=== PATIENT | female | born 1950 | race Caucasian/White ===

== ENCOUNTER 2018-01-15 12:53 | Emergency (ER) | payer MEDICARE ==
[2018-01-15 14:12] LABS: BILIRUBIN,URINE NEGATIVE (NEG); CLARITY,URINE CLEAR; COLOR,URINE YELLOW; GLUCOSE,URINE NEGATIVE (NEG); NITRITE,URINE NEGATIVE (NEG); PROTEIN,URINE NEGATIVE (NEG-TRACE); UROBILINOGEN,URINE 0.2 mg/dL (0.2 mg/dL)
[2018-01-15 14:18] LABS: ANION GAP 7 (6-14); BLOOD UREA NITROGEN 20 mg/dL (7-20); CALCIUM 10.8 mg/dL (8.5-10.1); CARBON DIOXIDE 30 mmol/L (21-32); CHLORIDE 104 mmol/L (98-107); CREATININE 0.8 mg/dL (0.6-1.0); GFR 71.1; GLUCOSE 126 mg/dL (70-99); POTASSIUM 3.5 mmol/L (3.5-5.1); SODIUM 141 mmol/L (136-145)
[2018-01-15 14:20] LABS: BACTERIA,URINE 0 /HPF (0-FEW); SQUAMOUS EPITHELIAL CELL,UR FEW /LPF; WBC,URINE 0 /HPF (0-4)
[2018-01-15] MEDS: LABETALOL 20 MG/4 ML DISP.SYRIN. IVP (14:31)
== END 2018-01-15 15:33 | disposition home or self-care (01) ==
LOC: ER 12:53
DX: I16.0 Hypertensive urgency (principal)
CPT/HCPCS: 36415; 71045; 80048; 81001; 93005; 96374; 99285-25; J3490

== ENCOUNTER 2018-01-20 04:32 | Inpatient (IN) | payer MEDICARE ==
[2018-01-20] MEDS: IV NORMAL SALINE 1000ML BAG 1,000 ML IV (05:00)
[2018-01-20] MEDS ORDERED: CONTRAST GIVEN MC (05:15)
[2018-01-20 05:17] LABS: ADD MAN DIFF? NO
[2018-01-20 05:20] LABS: BASO # 0.1 x10^3/uL (0.0-0.2); BASO % 1 % (0-3); EOS # 0.1 x10^3/uL (0.0-0.7); EOS % 1 % (0-3); HEMATOCRIT 41.7 % (36.0-47.0); HEMOGLOBIN 14.1 g/dL (12.0-15.5); LYMPH # 4.3 x10^3/uL (1.0-4.8); LYMPH % 38 % (24-48); MEAN CORPUSCULAR HEMOGLOBIN 30 pg (25-35); MEAN CORPUSCULAR HGB CONC 34 g/dL (31-37); MEAN CORPUSCULAR VOLUME 89 fL (79-100); MONO # 0.8 x10^3/uL (0.0-1.1); MONO % 7 % (0-9); NEUT # 5.9 x10^3uL (1.8-7.7); NEUT % 53 % (31-73); PLATELET COUNT 310 x10^3/uL (140-400); RED BLOOD COUNT 4.71 x10^6/uL (3.50-5.40); RED CELL DISTRIBUTION WIDTH 14.9 % (11.5-14.5); WHITE BLOOD COUNT 11.2 x10^3/uL (4.0-11.0)
[2018-01-20] MEDS: AMIODARONE 150 MG in IV DEXTROSE 5% 100 ML IV (05:28)
[2018-01-20 05:30] LABS: ANION GAP 3 (6-14); BLOOD UREA NITROGEN 21 mg/dL (7-20); BUN/CREATININE RATIO 26 (6-20); CARBON DIOXIDE 30 mmol/L (21-32); CHLORIDE 109 mmol/L (98-107); CREATININE 0.8 mg/dL (0.6-1.0); GFR 71.1; GLUCOSE 108 mg/dL (70-99); POTASSIUM 3.2 mmol/L (3.5-5.1); SODIUM 142 mmol/L (136-145)
[2018-01-20 05:36] LABS: ALBUMIN 3.1 g/dL (3.4-5.0); ALBUMIN/GLOBULIN RATIO 0.9 (1.0-1.7); ALK PHOS 87 U/L (46-116); ALT (SGPT) 19 U/L (14-59); AST (SGOT) 10 U/L (15-37); TOTAL BILIRUBIN 0.4 mg/dL (0.2-1.0); TOTAL PROTEIN 6.4 g/dL (6.4-8.2)
[2018-01-20 05:38] LABS: TROPONINI < 0.017 ng/mL (0.000-0.055)
[2018-01-20] MEDS: AMIODARONE 900 MG in IV DEXTROSE 5% 500 ML IV (05:44)
[2018-01-20] MEDS: IOHEXOL 300 MG/ML 100ML VIAL. IV (06:00)
[2018-01-20] MEDS ORDERED: ONDANSETRON PF 4 MG/2 ML VIAL. IV (06:30)
[2018-01-20] MEDS ORDERED: NITROGLYCERIN SUBLINGUAL 0.4 MG BOTTLE OF 25. SL (06:30)
[2018-01-20] MEDS ORDERED: MORPHINE SULFATE 4 MG/ML DISP.SYRIN. IV (06:30)
[2018-01-20 08:00] LABS: MAGNESIUM 1.9 mg/dL (1.8-2.4)
[2018-01-20 09:55] LABS: TROPONINI < 0.017 ng/mL (0.000-0.055)
[2018-01-20] MEDS: IPRATRPIUM/ALBUTEROL 0.5/2.5MG 3 ML NEBU. NEB ×3 (11:26→20:37)
[2018-01-20] MEDS: amLODIPine BESYLATE 5 MG TABLET PO (12:00)
[2018-01-20] MEDS: PANTOPRAZOLE 40 MG TABLET.DR. PO (12:00)
[2018-01-20] MEDS: POTASSIUM CHLORIDE 20 MEQ TABLET.ER. PO (12:00)
[2018-01-20] MEDS ORDERED: IODIXANOL 320 MG/ML 100 ML VIAL. (12:41)
[2018-01-20] MEDS ORDERED: LIDOCAINE 2% 20 ML VIAL. (12:41)
[2018-01-20 12:46] LABS: CHOLESTEROL 184 mg/dL (0-200); CHOLESTEROL/HDL RATIO 2.5; HDLC 75 mg/dL (40-60); LDLC 82 mg/dL (0-100); NON-HDL CHOLESTEROL 109 mg/dL (0-129); TRIGLYCERIDES 134 mg/dL (0-150); VLDLC 27 mg/dL (0-40)
[2018-01-20 12:52] LABS: TROPONINI < 0.017 ng/mL (0.000-0.055)
[2018-01-20] MEDS ORDERED: fentaNYL PF VIAL 100 MCG/2 ML VIAL (15:25)
[2018-01-20] MEDS ORDERED: MIDAZOLAM HCL/PF 2 MG/2 ML VIAL. (15:25)
[2018-01-20] MEDS: ENOXAPARIN 40 MG/0.4 ML SYRINGE. SQ (16:00)
[2018-01-20] MEDS: IODIXANOL 320 MG/ML 100 ML VIAL. IART (16:05)
[2018-01-20] MEDS: LIDOCAINE 2% 20 ML VIAL. IJ (16:06)
[2018-01-20] MEDS: fentaNYL PF VIAL 100 MCG/2 ML VIAL IV (16:07)
[2018-01-20] MEDS: MIDAZOLAM HCL/PF 2 MG/2 ML VIAL. IV (16:07)
[2018-01-20] MEDS: DOXYCYCLINE HYCLATE 100 MG TABLET PO ×2 (16:58→21:08)
[2018-01-20] MEDS: LACTOBACILLUS RHAMNOSUS GG 1 CAPSULE. PO ×2 (16:58→21:08)
[2018-01-20] MEDS: IV 1/2 NORMAL SALINE 1,000 ML IV (17:09)
[2018-01-20] MEDS: ATORVASTATIN CALCIUM 20 MG TABLET PO (21:08)
[2018-01-20] MEDS: ACETAMINOPHEN 325 MG TABLET. PO (21:09)
[2018-01-21] MEDS: ACETAMINOPHEN 325 MG TABLET. PO (03:27)
[2018-01-21 05:09] LABS: ADD MAN DIFF? NO
[2018-01-21] MEDS: amLODIPine BESYLATE 5 MG TABLET PO (05:12)
[2018-01-21 05:34] LABS: BASO % 0 % (0-3); EOS # 0.3 x10^3/uL (0.0-0.7); EOS % 3 % (0-3); HEMATOCRIT 42.4 % (36.0-47.0); HEMOGLOBIN 13.7 g/dL (12.0-15.5); LYMPH # 3.8 x10^3/uL (1.0-4.8); LYMPH % 31 % (24-48); MEAN CORPUSCULAR HEMOGLOBIN 29 pg (25-35); MEAN CORPUSCULAR HGB CONC 32 g/dL (31-37); MEAN CORPUSCULAR VOLUME 89 fL (79-100); MONO # 0.8 x10^3/uL (0.0-1.1); MONO % 7 % (0-9); NEUT # 7.2 x10^3uL (1.8-7.7); NEUT % 59 % (31-73); PLATELET COUNT 280 x10^3/uL (140-400); RED BLOOD COUNT 4.77 x10^6/uL (3.50-5.40); WHITE BLOOD COUNT 12.1 x10^3/uL (4.0-11.0)
[2018-01-21 06:11] LABS: ALBUMIN 3.1 g/dL (3.4-5.0); ALBUMIN/GLOBULIN RATIO 0.9 (1.0-1.7); ALK PHOS 79 U/L (46-116); ALT (SGPT) 20 U/L (14-59); ANION GAP 7 (6-14); AST (SGOT) 13 U/L (15-37); BLOOD UREA NITROGEN 14 mg/dL (7-20); BUN/CREATININE RATIO 20 (6-20); CALCIUM 9.8 mg/dL (8.5-10.1); CARBON DIOXIDE 29 mmol/L (21-32); CHLORIDE 104 mmol/L (98-107); CREATININE 0.7 mg/dL (0.6-1.0); GLUCOSE 103 mg/dL (70-99); POTASSIUM 3.7 mmol/L (3.5-5.1); SODIUM 140 mmol/L (136-145); TOTAL BILIRUBIN 0.5 mg/dL (0.2-1.0); TOTAL PROTEIN 6.4 g/dL (6.4-8.2)
[2018-01-21] MEDS: IPRATRPIUM/ALBUTEROL 0.5/2.5MG 3 ML NEBU. NEB ×4 (08:03→20:07)
[2018-01-21] MEDS: PANTOPRAZOLE 40 MG TABLET.DR. PO (08:30)
[2018-01-21] MEDS: LACTOBACILLUS RHAMNOSUS GG 1 CAPSULE. PO ×2 (08:31→21:00)
[2018-01-21] MEDS: AMIODARONE HCL 200 MG TABLET. PO (08:31)
[2018-01-21] MEDS: DOXYCYCLINE HYCLATE 100 MG TABLET PO ×2 (08:31→21:00)
[2018-01-21] MEDS: IV 1/2 NORMAL SALINE 1,000 ML IV (08:49)
[2018-01-21] MEDS: hydroCHLOROthiazide 25 MG TABLET PO (17:27)
[2018-01-21] MEDS: LISINOPRIL 20 MG TABLET PO (17:28)
[2018-01-21] MEDS: diazePAM 5 MG TABLET PO (18:18)
[2018-01-21] MEDS: ENOXAPARIN 40 MG/0.4 ML SYRINGE. SQ (18:22)
[2018-01-21] MEDS: ATORVASTATIN CALCIUM 20 MG TABLET PO (21:00)
[2018-01-21] MEDS ORDERED: ATORVASTATIN CALCIUM 20 MG TABLET PO (21:00)
[2018-01-22] MEDS: IV 1/2 NORMAL SALINE 1,000 ML IV (01:29)
[2018-01-22] MEDS: PANTOPRAZOLE 40 MG TABLET.DR. PO (08:07)
[2018-01-22] MEDS: hydroCHLOROthiazide 25 MG TABLET PO (08:07)
[2018-01-22] MEDS: amLODIPine BESYLATE 5 MG TABLET PO (08:08)
[2018-01-22] MEDS: LACTOBACILLUS RHAMNOSUS GG 1 CAPSULE. PO (08:08)
[2018-01-22] MEDS: LISINOPRIL 20 MG TABLET PO (08:08)
[2018-01-22] MEDS: DOXYCYCLINE HYCLATE 100 MG TABLET PO (08:09)
[2018-01-22] MEDS: AMIODARONE HCL 200 MG TABLET. PO (08:09)
[2018-01-22] MEDS: IPRATRPIUM/ALBUTEROL 0.5/2.5MG 3 ML NEBU. NEB ×2 (10:57→12:00)
== END 2018-01-22 16:57 | disposition home or self-care (01) | DRG 286 ==
LOC: ER 04:32 → 2 NORTH 05:38
PROC: 4A023N7 Measurement of Cardiac Sampling and Pressure, Left Heart, Percutaneous Approach (ICD-10-PCS; principal; 2018-01-20)
PROC: B2111ZZ Fluoroscopy of Multiple Coronary Arteries using Low Osmolar Contrast (ICD-10-PCS; 2018-01-20)
PROC: B2151ZZ Fluoroscopy of Left Heart using Low Osmolar Contrast (ICD-10-PCS; 2018-01-20)
DX: I47.1 Supraventricular tachycardia (principal); I71.01 Dissection of thoracic aorta; I47.2 Ventricular tachycardia; E78.5 Hyperlipidemia, unspecified; I48.92 Unspecified atrial flutter; I07.1 Rheumatic tricuspid insufficiency; F17.210 Nicotine dependence, cigarettes, uncomplicated; I10 Essential (primary) hypertension; J44.9 Chronic obstructive pulmonary disease, unspecified; D35.02 Benign neoplasm of left adrenal gland; K76.9 Liver disease, unspecified; E78.00 Pure hypercholesterolemia, unspecified; Z82.49 Family history of ischemic heart disease and other diseases of the circulatory system; Z90.710 Acquired absence of both cervix and uterus
CPT/HCPCS: 36415; 71045; 71275; 80053; 80061; 83735; 84484; 85025; 93005; 93306; 93458; 94640; 94760; 96365; 96366; 96376; 99152; 99153; 99285; 99285-25; 99407; C1769; C1892; J0282; J1644; J1650; J2250; J3010; J7030; J7620

== ENCOUNTER → 2018-04-10 | Outpatient (CLI) | payer MEDICARE | END | disposition home or self-care (01) | LOC: CT 09:53 | DX: I71.2 Thoracic aortic aneurysm, without rupture (principal); R91.1 Solitary pulmonary nodule | CPT/HCPCS: 71250 ==

== ENCOUNTER 2018-05-16 21:46 | Emergency (ER) | payer MEDICARE ==
[2018-05-16 23:36] LABS: ADD MAN DIFF? NO
[2018-05-16 23:38] LABS: BASO # 0.1 x10^3/uL (0.0-0.2); BASO % 1 % (0-3); EOS # 0.6 x10^3/uL (0.0-0.7); EOS % 7 % (0-3); HEMATOCRIT 48.2 % (36.0-47.0); HEMOGLOBIN 16.3 g/dL (12.0-15.5); LYMPH # 2.6 x10^3/uL (1.0-4.8); LYMPH % 31 % (24-48); MEAN CORPUSCULAR HEMOGLOBIN 31 pg (25-35); MEAN CORPUSCULAR HGB CONC 34 g/dL (31-37); MEAN CORPUSCULAR VOLUME 90 fL (79-100); MONO # 0.5 x10^3/uL (0.0-1.1); MONO % 6 % (0-9); NEUT # 4.7 x10^3uL (1.8-7.7); NEUT % 55 % (31-73); PLATELET COUNT 295 x10^3/uL (140-400); RED BLOOD COUNT 5.34 x10^6/uL (3.50-5.40); RED CELL DISTRIBUTION WIDTH 15.6 % (11.5-14.5); WHITE BLOOD COUNT 8.4 x10^3/uL (4.0-11.0)
[2018-05-16 23:48] LABS: ANION GAP 11 (6-14); BLOOD UREA NITROGEN 17 mg/dL (7-20); BUN/CREATININE RATIO 21 (6-20); CALCIUM 10.5 mg/dL (8.5-10.1); CARBON DIOXIDE 27 mmol/L (21-32); CHLORIDE 103 mmol/L (98-107); CREATININE 0.8 mg/dL (0.6-1.0); GFR 71.1; GLUCOSE 103 mg/dL (70-99); POTASSIUM 3.6 mmol/L (3.5-5.1); SODIUM 141 mmol/L (136-145)
[2018-05-16 23:49] LABS: ETHANOL < 10 mg/dL (0-10)
[2018-05-16] MEDS: cloNIDine HCL 0.1 MG TABLET PO (23:53)
[2018-05-16] MEDS: IV NORMAL SALINE 1000ML BAG 1,000 ML IV (23:53)
[2018-05-16 23:54] LABS: ALBUMIN 4.7 g/dL (3.4-5.0); ALBUMIN/GLOBULIN RATIO 1.2 (1.0-1.7); ALK PHOS 96 U/L (46-116); ALT (SGPT) 31 U/L (14-59); AST (SGOT) 26 U/L (15-37); TOTAL BILIRUBIN 0.4 mg/dL (0.2-1.0); TOTAL PROTEIN 8.5 g/dL (6.4-8.2)
[2018-05-17 00:01] LABS: THYROID STIM HORMONE (TSH) 1.634 uIU/mL (0.358-3.74)
[2018-05-17 00:02] LABS: TROPONINI < 0.017 ng/mL (0.000-0.055)
[2018-05-17 00:41] LABS: BILIRUBIN,URINE NEGATIVE (NEG); CLARITY,URINE CLEAR; COLOR,URINE YELLOW; GLUCOSE,URINE NEGATIVE (NEG); NITRITE,URINE NEGATIVE (NEG); PH,URINE 6.5; PROTEIN,URINE NEGATIVE (NEG-TRACE); UROBILINOGEN,URINE 0.2 mg/dL (0.2 mg/dL)
[2018-05-17 00:47] LABS: BACTERIA,URINE MANY /HPF (0-FEW); RBC,URINE OCC /HPF (0-2); SQUAMOUS EPITHELIAL CELL,UR MANY /LPF; WBC,URINE 20-40 /HPF (0-4)
== END 2018-05-17 01:46 | disposition home or self-care (01) ==
LOC: ER 05-17 01:46
DX: I10 Essential (primary) hypertension (principal)
CPT/HCPCS: 36415; 80053; 81001; 84443; 84484; 85025; 93005; 99285-25; G0480; J7030

== ENCOUNTER 2018-05-27 00:01 | Emergency (ER) | payer MEDICARE ==
[2018-05-27 00:32] LABS: ADD MAN DIFF? NO
[2018-05-27 00:34] LABS: BASO # 0.1 x10^3/uL (0.0-0.2); BASO % 1 % (0-3); EOS # 0.7 x10^3/uL (0.0-0.7); EOS % 7 % (0-3); HEMATOCRIT 43.1 % (36.0-47.0); HEMOGLOBIN 14.6 g/dL (12.0-15.5); LYMPH # 2.3 x10^3/uL (1.0-4.8); LYMPH % 21 % (24-48); MEAN CORPUSCULAR HEMOGLOBIN 31 pg (25-35); MEAN CORPUSCULAR HGB CONC 34 g/dL (31-37); MEAN CORPUSCULAR VOLUME 90 fL (79-100); MONO # 0.7 x10^3/uL (0.0-1.1); MONO % 6 % (0-9); NEUT # 7.1 x10^3uL (1.8-7.7); NEUT % 65 % (31-73); PLATELET COUNT 279 x10^3/uL (140-400); RED BLOOD COUNT 4.77 x10^6/uL (3.50-5.40); RED CELL DISTRIBUTION WIDTH 15.5 % (11.5-14.5); WHITE BLOOD COUNT 10.9 x10^3/uL (4.0-11.0)
[2018-05-27] MEDS: cloNIDine HCL 0.1 MG TABLET PO (00:34)
[2018-05-27 00:44] LABS: ANION GAP 9 (6-14); BLOOD UREA NITROGEN 17 mg/dL (7-20); CALCIUM 9.6 mg/dL (8.5-10.1); CARBON DIOXIDE 28 mmol/L (21-32); CHLORIDE 104 mmol/L (98-107); CREATININE 0.7 mg/dL (0.6-1.0); GLUCOSE 109 mg/dL (70-99); POTASSIUM 3.7 mmol/L (3.5-5.1); SODIUM 141 mmol/L (136-145)
[2018-05-27 00:54] LABS: TROPONINI < 0.017 ng/mL (0.000-0.055)
[2018-05-27 02:00] LABS: BILIRUBIN,URINE NEGATIVE (NEG); CLARITY,URINE CLOUDY; COLOR,URINE YELLOW; GLUCOSE,URINE NEGATIVE (NEG); NITRITE,URINE NEGATIVE (NEG); PH,URINE 6.5; PROTEIN,URINE NEGATIVE (NEG-TRACE); UROBILINOGEN,URINE 0.2 mg/dL (0.2 mg/dL)
[2018-05-27 02:10] LABS: BACTERIA,URINE MOD /HPF (0-FEW); RBC,URINE OCC /HPF (0-2); SQUAMOUS EPITHELIAL CELL,UR MANY /LPF
[2018-05-27] MEDS: NITROFURANTOIN MONOHYD/M-CRYST 100 MG CAPSULE. PO (02:58)
== END 2018-05-27 03:02 | disposition home or self-care (01) ==
LOC: ER 00:01
DX: R42 Dizziness and giddiness (principal); J44.9 Chronic obstructive pulmonary disease, unspecified; I10 Essential (primary) hypertension
CPT/HCPCS: 36415; 80048; 81001; 84484; 85025; 93005; 99285-25

== ENCOUNTER 2018-05-27 23:19 | Emergency (ER) | payer MEDICARE ==
[2018-05-28] MEDS: cloNIDine HCL 0.1 MG TABLET PO (00:10)
== END 2018-05-28 00:50 | disposition home or self-care (01) ==
LOC: ER 05-28 00:50
DX: I10 Essential (primary) hypertension (principal); F41.9 Anxiety disorder, unspecified; J44.9 Chronic obstructive pulmonary disease, unspecified; E78.00 Pure hypercholesterolemia, unspecified; F32.9 Major depressive disorder, single episode, unspecified
CPT/HCPCS: 99283

== ENCOUNTER → 2018-06-28 | Outpatient (CLI) | payer MEDICARE ==
[2018-05-28 00:30] VITALS: BP 164/73
[~2018-06-28] MED LIST: AMIO200T4 PO; AMLO5TAB2 PO; ATOR20TA58 PO; BUDE10.2 IH; CLON0.1T PO; DOXY100C2 PO; HYDR12.58 PO; LACT1CAP19 PO; LISI-130 PO; METO-269 PO; NITR100C62 PO
--- NOTE | 2018-06-28 17:13 | RAD ---
MR#: [id number] Date of Study: 06/28/2018 Ordering Physician: BROOKE HENNING, Referring Physician: BROOKE HENNING, Tech: Duong Alicia MBA, RDMS, RVT, RDCS, RTR APPROVED REPORT Patient Location: OUT-PATIENT Indications Uncontrolled HTN Renal Artery Doppler Right Renal Artery Left Renal Arter y Proximal 257.0/35.0 cm/secProximal 80.0/25.0 cm/sec Mid 248.0/49.0 cm/secMid 150.0/30.0 cm/sec Distal 74.0/20.0 cm/secDistal 120.0/23.0 cm/sec Renal/Aorta Ratio 2.61Renal/Aorta Ratio 1.53 Prox. Resistive Index 0.86Prox. Resistive Index 0.69 Mid Resistive Index 0.80Mid Resistive Index 0.80 Distal Resistive Index 0.73Distal Resistive Index 0.81 Rt. Segmental A. 25.0/10.0 cm/secLt. Segmental A. 50.0/13.0 cm/sec Renal Measurements RightLeft Kidney Length9 cm cmKidney Rwfnzc39.8 cm cm Right Additional FindingsLeft Additional Findings Aortic Duplex A/PTransverseLongitudinal Proximal Aorta 2.2cm1.6cm Mid Aorta 2.8cm3.0cm Distal Aorta 1.1cm1.4cm Aortic Doppler VelocityWaveform Proximal Aorta 98.0 cm/sec Findings Grayscale images of the kidneys reveal a 6.1 cm cyst in the superior pole of the left kidney. This is likely a simple cyst. Spectral waveforms and color Doppler in the left renal artery are grossly unremarkable. Renal to aort ic ratios are unremarkable. Spectral waveforms and color Doppler of the proximal and mid renal artery are suggestive of elevated velocities at 257 cm/s with a renal to aortic ratio of 2.61. This suggest a moderate degree of narrow ing in the right renal artery probably in the order of 50%. There is a 3 cm abdominal aortic aneurysm in the infrarenal segment Critical Notification Critical Value: No <Conclusion> 1. Probable moderate approximately 50% stenosis involving the right renal artery. No significant left renal artery stenosis. 2. Incidental finding of a 6.1 cm left renal cyst. If there is clinical suspicion for malignancy, con tinner automatic triple phase CT scan for further evaluation. 3. There is a 3cm AAA (infrarenal) Signed by : Easton Hernandez, Electronically Approved : 06/28/2018 17:12:05
== END | disposition home or self-care (01) ==
LOC: US 13:25
PROVIDERS: ATTEND Internal Medicine Cardiovascular Disease
DX: N28.1 Cyst of kidney, acquired (principal); I71.4 Abdominal aortic aneurysm, without rupture; I10 Essential (primary) hypertension; E78.5 Hyperlipidemia, unspecified; E78.00 Pure hypercholesterolemia, unspecified; J44.9 Chronic obstructive pulmonary disease, unspecified; F17.210 Nicotine dependence, cigarettes, uncomplicated; Z90.710 Acquired absence of both cervix and uterus; Z82.49 Family history of ischemic heart disease and other diseases of the circulatory system
CPT/HCPCS: 76770

== ENCOUNTER → 2018-07-13 | Outpatient (CLI) | payer MEDICARE ==
[2018-05-28 00:30] VITALS: BP 164/73
[~2018-07-13] MED LIST changes: -AMLO5TAB2 PO; +AMLO5TAB7 PO; +REGADENOSON 0.4 MG/5 ML DISP.SYRIN. IV ONE
--- NOTE | 2018-07-13 12:38 | RAD ---
MR#: [id number] Date of Study: 07/13/2018 Ordering Physician: BROOKE HENNING Referring Physician: HERNÁN VILLAGOMEZ Tech: ROCÍO Suggs APPROVED REPORT Test Type: Pharmacological Stress Nurse/Tech: Fabienne Banuelos RN Test Indications: Occassional shortness of breath Cardiac History: Hypertension,COPD,smoker Medications: See Electronic Medical Record Medical History: See Electronic Medical Record Resting ECG: SB Resting Heart Rate: 59 bpm Resting Blood Pressure: 150/59mmHg Pretest Chest Pain: No chest pain Nurse/Tech Notes S1,S2 and lungs diminished throughout. Patient stated she just is recovering from Bronchitis. Consent: The procedure was explained to the patient in lay terms. Informed consent was witnessed. Rory eout was entered into [employer]. History and Stress Test performed by ROCÍO Suggs Pharm. Details Pharmacologic stress testing was performed using 0.4mg per 5ml of regadenoson given intravenously ove r 7-10 seconds. Stress Symptoms Dyspnea,Nausea,Dizziness. Patient stated she felt funny all over. POST EXERCISE Reason for Termination: Infusion complete Target HR: No Max HR: 80 bpm Max Blood Pressure: 145/50mmHg Blood Pressure response to exercise: Normal blood pressure response during stress. Heart Rate response to exercise: WNL Chest Pain: No. Arrhythmia: No. ST Change: Yes. ST elevation in leads V4-6. INTERPRETATION Stress EKG Conclusion: Baseline EKG showed sinus rhythm. No ischemic changes at peak stress. No arr hythmias. Imaging Protocol IMAGE PROTOCOL: Rest Tc-99m/stress Tc-99m 1 day Rest: Stress: Viability: Radiopharm.Tc99m HcalemyprLm56j Sestamibi Dose12.2mCi 32.5mCi Duration 15min. 13min. Img Date 07/13/2018 07/13/2018 Inj-Img [id number]. 60min. Rest Admin Site:IV - Right AntecubitalAdministrator:ROCÍO Suggs Stress Admin Site: IV - Right AntecubitalAdministrator: KATY Gay, ARRT (R)(N) STRESS DATA End Diast. Vol.64.0mlLVEDV index BSA42.0ml End Syst. Vol.17.0mlLVESV index BSA11.0ml Myocardial Xoyh697.0gEject. Sgvgyqoy36.0% Stress Scores Regional WT0.00Summed WT1.00 Regional WM0.00Summed WM0.00 Study quality was good. Left Ventricular size was Normal at Rest and Stress. Lung uptake was Normal. Left Ventricular ejection fraction is 73%. The rest and stress images show normal perfusion, normal contraction and thickening. LV Perf. Quant 17 Seg. SSS0.00 17 Seg. SRS2.00 17 Seg. SDS0.00 Stress Defect Extent (% LAD)0.00Rest Defect Extent (% LAD)1.90Rev. Defect Extent (% LAD)0.00 Stress Defect Extent (% LCX) 0.00Rest Defect Extent (% LCX)0.00Rev. Defect Extent (% LCX)0.00 Stress Defect Extent (% RCA)0.00Rest Defect Extent (% RCA)0.00Rev. Defect Extent (% RCA)0.00 Stress Defect Extent (% JAMARI)0.00Rest Defect Extent (% JAMARI)2.40Rev. Defect Extent (% JAMARI)0.00 Conclusion 1. Regadenoson cardioisotope stress test did not show any evidence of ischemia or infarct. 2. Normal left ventricular systolic function with ejection fraction calculated at 73%. 3. Low risk for cardiac events. Signed by : Brooke Henning, Electronically Approved : 07/13/2018 12:37:32
== END | disposition home or self-care (01) ==
LOC: NM 08:42
PROVIDERS: ATTEND Internal Medicine Cardiovascular Disease
DX: R07.89 Other chest pain (principal); R06.02 Shortness of breath; I10 Essential (primary) hypertension; J44.9 Chronic obstructive pulmonary disease, unspecified; E78.00 Pure hypercholesterolemia, unspecified; Z87.891 Personal history of nicotine dependence; Z90.710 Acquired absence of both cervix and uterus; Z82.49 Family history of ischemic heart disease and other diseases of the circulatory system
CPT/HCPCS: 78452; 93017; 96374; 96375; 96376; A9500; J2785

== ENCOUNTER → 2018-07-21 | Outpatient (CLI) | payer MEDICARE ==
[2018-05-28 00:30] VITALS: BP 164/73
[~2018-07-21] MED LIST changes: -REGADENOSON 0.4 MG/5 ML DISP.SYRIN. IV ONE
--- NOTE | 2018-07-21 15:48 | RAD ---
CT CHEST WO CONTRAST Indication: LUNG NODULE F/U, PRIOR SENT Exposure: One or more of the following individualized dose reduction techniques were utilized for this examination: 1. Automated exposure control 2. Adjustment of the mA and/or kV according to patient size 3. Use of iterative reconstruction technique. Comparison: April 10, 2018 Contrast: None FINDINGS: Vascular structures: Limited exam without contrast. Descending thoracic aortic aneurysm with calcified mcneil and calcified dissection flap is again identified. No significant change in appearance or size. Lymph nodes:No significant enlargement Thyroid gland:Visualized aspect is unremarkable. Heart: Coronary artery calcifications. Esophagus: Unremarkable Pleural spaces: No significant effusion Lungs: Reticulonodular densities in the left lung are again identified, and appears overall stable since the previous exam. There is some bronchiectasis as well as endobronchial density. No new infiltrate or new dominant mass. Spine: Degenerative spondylosis. Left convexity thoracolumbar scoliosis. Bones: No destructive process Upper abdomen: Slices obtained through the upper most abdomen are limited by the noncontrast technique. Low-density liver lesions are stable since the prior exam. The large left adrenal mass is unchanged in size and appearance. Impression: 1. Abnormal opacities in the left lung are stable since previous exam. No new pulmonary mass is identified. 2. Stable appearance of the descending thoracic aortic aneurysm/dissection. 3. Indeterminate left adrenal mass is stable. 4. Hypodense liver lesions appear similar, with commonly represent benign etiology such as hemangiomas. Electronically signed by: Kike Leija MD (07/21/2018 3:45 PM) [facility]
== END | disposition home or self-care (01) ==
LOC: CT 14:56
PROVIDERS: ATTEND Internal Medicine Pulmonary Disease
DX: I71.2 Thoracic aortic aneurysm, without rupture (principal); I25.10 Atherosclerotic heart disease of native coronary artery without angina pectoris; M47.894 Other spondylosis, thoracic region; E27.8 Other specified disorders of adrenal gland; R91.8 Other nonspecific abnormal finding of lung field; I10 Essential (primary) hypertension; E78.00 Pure hypercholesterolemia, unspecified; J44.9 Chronic obstructive pulmonary disease, unspecified; Z87.891 Personal history of nicotine dependence; Z90.710 Acquired absence of both cervix and uterus; Z82.49 Family history of ischemic heart disease and other diseases of the circulatory system
CPT/HCPCS: 71250

== ENCOUNTER → 2019-01-22 | Outpatient (CLI) | payer MEDICARE ==
[2018-05-28 00:30] VITALS: BP 164/73
[~2019-01-22] MED LIST changes: +AMLO5TAB10 PO; -AMLO5TAB7 PO
--- NOTE | 2019-01-22 14:52 | RAD ---
PQRS Compliance statement: One or more of the following individualized dose reduction techniques were utilized for this examination: 1. Automated exposure control. 2. Adjustment of the mA and/or kV according to patient size. 3. Use of iterative reconstruction technique. Indication:LUNG NODULE follow-up TECHNIQUE: CT chest none IV contrast with multiplanar reformats. COMPARISON: 07/21/2018 FINDINGS: Heart is normal in size. No pericardial or pleural effusion. No enlarged axillary lymph nodes. Calcified mediastinal and hilar lymph nodes are seen. Redemonstrated is descending thoracic aorta aneurysm approximately measuring 4.1 x 3.1 cm, previously 4.0 x 3.3 cm. Central airways are patent. Stable reticulonodular opacities are seen in the left upper lobe. Stable 2 mm nodule in the subpleural right upper lobe (series 2 image 15). Mild emphysema. Stable nodular opacity in the left lower lobe (series 2 image 30). Stable segment 7 low attenuating liver lesion measuring 2.5 x 1.7 cm. And is stable segment 2 liver lesion measuring 1 cm. Visualized sections through the noncontrast spleen, pancreas and right adrenal within normal limits. Left adrenal gland is not well visualized. 5.6 x 4.4 cm simple appearing cyst is seen in the upper pole of the left kidney. No suspicious bony lesion. IMPRESSION: 1. Stable bilateral lung findings as described above. For findings in the left upper lobe may be secondary to chronic aspiration or infection. 2. Incidental findings as described above. Electronically signed by: Kameron Yuan DO (01/22/2019 2:49 PM) [facility]
== END | disposition home or self-care (01) ==
LOC: CT 13:38
PROVIDERS: ATTEND Internal Medicine Pulmonary Disease
DX: R91.1 Solitary pulmonary nodule (principal); J43.9 Emphysema, unspecified; I71.2 Thoracic aortic aneurysm, without rupture; K76.89 Other specified diseases of liver; R91.8 Other nonspecific abnormal finding of lung field; R59.0 Localized enlarged lymph nodes
CPT/HCPCS: 71250

== ENCOUNTER → 2020-04-23 | Outpatient (CLI) | payer MEDICARE ==
[2018-05-28 00:30] VITALS: BP 164/73
--- NOTE | 2020-04-23 13:24 | RAD ---
PQRS Compliance Statement: One or more of the following individualized dose reduction techniques were utilized for this examination: 1. Automated exposure control 2. Adjustment of the mA and/or kV according to patient size 3. Use of iterative reconstruction technique CT CHEST WO CONTRAST 04/23/2020 11:02 AM Indication: Pulmonary nodules COMPARISON: 01/22/2019, 07/21/2018 TECHNIQUE: Multiple axial CT images of the chest were obtained without intravenous contrast. Coronal and sagittal reformats are provided. FINDINGS: Increase in size of a 0.8 cm solid noncalcified pulmonary nodule with minimal spiculations in the super segment left lower lobe anteriorly (series 3, image 133), previously measuring 0.55 cm on 01/22/2019. Reticular nodular interstitial changes are identified in the inferior lingula, stable. 2 mm subpleural nodule in the right upper lobe appears stable (series 3, image 55). Mild/moderate centrilobular pulmonary emphysematous changes. Mild bronchial wall thickening compatible with bronchitis. No pleural effusions, pulmonary vascular congestion or pneumothorax. Calcified bilateral hilar lymphadenopathy suggestive of prior granulomatous exposure. No pathologically enlarged thoracic lymph nodes are identified. There is a treated descending thoracic aortic aneurysm with stent graft extending from the proximal descending thoracic aorta to the distal descending thoracic aorta. [place] aortic lumen measures 4.2 x 3.1 cm, stable. There is infrarenal abdominal aortic aneurysm, only partially profiled. Simple right hepatic cyst. No new suspicious abnormality in the upper abdomen. Simple cyst involving the superior pole left kidney. No suspicious osseous abnormality is identified. Levoconvex scoliosis of the thoracolumbar spine is present. IMPRESSION: Increase streaky with a solid noncalcified pulmonary nodule in the super segment left lower lobe measuring 0.8 cm, previously 0.55 cm. Findings are suspicious for primary pulmonary malignancy on the background of COPD changes. Further evaluation with PET/CT or tissue sampling could be of benefit versus 3 month follow-up chest CT. Consultation with thoracic surgery may be of benefit. Treated ascending thoracic aortic aneurysm with stent graft. No significant interval change involving size of the [place] aortic lumen. Electronically signed by: Tequila Garcia MD (04/23/2020 1:21 PM) [facility]
== END ==
LOC: CT 11:26
PROVIDERS: ATTEND Internal Medicine Pulmonary Disease
DX: R91.1 Solitary pulmonary nodule (principal); I71.2 Thoracic aortic aneurysm, without rupture
CPT/HCPCS: 71250

== ENCOUNTER → 2020-04-24 | Outpatient (CLI) | payer MEDICARE ==
[2018-05-28 00:30] VITALS: BP 164/73
[~2020-04-24] MED LIST changes: +CONTRAST GIVEN. MC PRN; +IOHEXOL 350 MG/ML 100 ML VIAL. IV ONE
[2020-04-24 09:18] LABS: CREATININE 0.8 mg/dL (0.6-1.0); GFR 70.7
--- NOTE | 2020-04-24 15:45 | RAD ---
CT of the chest, abdomen, and pelvis compared to pulmonary CTA of the chest dated 01/20/2018 for descending thoracic aortic aneurysm. TECHNIQUE: Contiguous helical axial images are obtained from the thoracic inlet to the pelvic floor both before and after administration of IV contrast in the systemic arterial phase. Sagittal and coronal MIPS are evaluated as are 3-D volume rendered images of the vasculature. No vascular findings: COPD. Redemonstration of chronic tree-in-bud infiltrates throughout the lingula, likely due to chronic bronchiolitis. No new infiltrates. No significant significant concern is an enlarging 7 mm spiculated pulmonary nodule in the anterior aspect the left lower lobe seen on series 5, image #46 which is highly suspicious for malignancy. This was previously seen to be much smaller and less conspicuous and indeterminate. No pleural effusions. There are severe degenerative changes of the spine. This resulted rotoscoliosis. No suspicious osteoblastic or osteolytic bone lesions are seen. No suspicious mediastinal, hilar, or axillary lymphadenopathy is evident. Coronary artery calcifications are present. There are changes of antecedent granulomas disease within the spleen. There is marked atrophy of the pancreatic tail with no discrete mass. Couple of hepatic hypodensities are most consistent with cysts. Gallbladder is unremarkable. No suspicious abnormalities involving either kidney. Bilateral adrenal glands are normal. Anterior to the abdominal aorta on series 5 axial image #103 is small soft tissue nodule which may reflect nonspecific adenopathy. This is grossly stable and may be benign. Attention on follow-up imaging is encouraged. Evaluation of the large and small bowel is limited by lack of oral contrast, however there is no evidence of all wall thickening or obstruction. There are innumerable sigmoid diverticula, with no evidence of acute diverticulitis. There is mild equalization of the distal small bowel. Urinary bladder is fluid distended and grossly unremarkable. Several phleboliths are seen in the pelvis. Vascular findings: There is redemonstration of a descending thoracic aortic endograft which excludes a now calcified thrombosed saccular aneurysm. This aneurysm measures 3.2 x 2.1 cm today with prior measurements of 3.3 x 2.3 cm. No evidence of endoleak. There is aneurysmal dilatation of the infrarenal abdominal aortic aneurysm measuring 3.4 x 3.3 cm transversely and AP respectively. This is only partially imaged on the prior CT the chest, rendering comparison incomplete. Bilateral iliofemoral arteries are patent with moderate multifocal atherosclerosis and no aneurysms. IMPRESSION: 1. Enlarging 7 mm spiculated left lung nodule, previously indeterminate but now highly suspicious for neoplasm. 2. Stable appearing descending thoracic aortic endograft with persistent exclusion of a calcified thrombosed saccular aneurysm and no evidence of endoleak. 3. Aneurysmal dilatation of the infrarenal abdominal aorta to 3.4 cm. 4. Innumerable sigmoid diverticula with no evidence of acute diverticulitis. 5. Severe degenerative changes of the spine. Para PQRS Compliance Statement: One or more of the following individualized dose reduction techniques were utilized for this examination: 1. Automated exposure control 2. Adjustment of the mA and/or kV according to patient size 3. Use of iterative reconstruction technique Electronically signed by: Don Mcmullen MD (04/24/2020 3:42 PM) [id number]
== END | disposition home or self-care (01) ==
LOC: CT 09:27
DX: I71.2 Thoracic aortic aneurysm, without rupture (principal); K57.30 Diverticulosis of large intestine without perforation or abscess without bleeding; R91.1 Solitary pulmonary nodule; M47.819 Spondylosis without myelopathy or radiculopathy, site unspecified
CPT/HCPCS: 36415; 71275; 74177; 82565; Q9967

== ENCOUNTER → 2020-05-12 | Outpatient (CLI) | payer MEDICARE ==
[2018-05-28 00:30] VITALS: BP 164/73
[~2020-05-12] MED LIST changes: -CONTRAST GIVEN. MC PRN; -IOHEXOL 350 MG/ML 100 ML VIAL. IV ONE
== END | disposition home or self-care (01) ==
LOC: LAB 14:08
PROVIDERS: ATTEND Internal Medicine Pulmonary Disease
DX: Z11.59 Encounter for screening for other viral diseases (principal)
CPT/HCPCS: U0003-CS

== ENCOUNTER → 2020-05-15 | Day surgery (SDC) | payer MEDICARE ==
[~2020-05-15] MED LIST changes: +ALBUTEROL SULFATE 2.5 MG/3 ML NEBU. NEB PRN; +ASPI-630 PO; +DIAZ5TAB4 PO; +EPINEPHrine 1 MG/ML VIAL INJ PRN; +EPINEPHrine 1 MG/ML VIAL ONE; +HYDROmorphone 2 MG/ML VIAL IV PRN; +IV RINGERS,LACTATED 1000ML 1,000 ML IV SCH; +LIDOCAINE 1% Multi-Dose 20 ML VIAL. INJ PRN; +LIDOCAINE 1% Multi-Dose 20 ML VIAL. ONE; +LIDOCAINE 1% PF 2 ML VIAL. ID PRN; +LIDOCAINE 2% VISCOUS 100 ML BOTTLE. MM PRN; +LIDOCAINE 2% VISCOUS 100 ML BOTTLE. ONE; +LIDOCAINE 4% TOPICAL 50 ML SOLUTION. MM PRN; +LIDOCAINE 4% TOPICAL 50 ML SOLUTION. ONE; +METO50TA6 PO; +MORPHINE SULFATE 2 MG/ML VIAL. IV PRN; +ONDANSETRON PF 4 MG/2 ML VIAL. IV PRN; +PROCHLORPERAZINE 10 MG/2 ML VIAL. IV PRN; +PROPOFOL 10 MG/ML (20ML) VIAL. IV ONE; +VENTOLIN HFA18 GM INH; +fentaNYL PF VIAL 100 MCG/2 ML VIAL IV PRN
[2020-05-15 12:28] LABS: BASO # 0.1 x10^3/uL (0.0-0.2); BASO % 1 % (0-3); EOS # 0.5 x10^3/uL (0.0-0.7); EOS % 8 % (0-3); HEMATOCRIT 39.4 % (36.0-47.0); HEMOGLOBIN 13.4 g/dL (12.0-15.5); LYMPH # 2.6 x10^3/uL (1.0-4.8); LYMPH % 40 % (24-48); MEAN CORPUSCULAR HEMOGLOBIN 30 pg (25-35); MEAN CORPUSCULAR HGB CONC 34 g/dL (31-37); MEAN CORPUSCULAR VOLUME 89 fL (79-100); MONO # 0.5 x10^3/uL (0.0-1.1); MONO % 7 % (0-9); NEUT # 2.9 x10^3/uL (1.8-7.7); NEUT % 44 % (31-73); PLATELET COUNT 265 x10^3/uL (140-400); RED BLOOD COUNT 4.43 x10^6/uL (3.50-5.40); RED CELL DISTRIBUTION WIDTH 14.9 % (11.5-14.5); WHITE BLOOD COUNT 6.6 x10^3/uL (4.0-11.0)
[2020-05-15 12:36] LABS: PROTHROMBIN TIME PATIENT 12.2 SEC (11.7-14.0)
--- NOTE | 2020-05-15 14:04 | OP ---
DATE OF SURGERY: 05/15/2020 ATTENDING PHYSICIAN: Hina Du MD PROCEDURE: Bronchoscopy, biopsy of lateral subsegment of the left lower lobe endobronchial lesion, bronchoalveolar lavage. INDICATIONS FOR BRONCHOSCOPY: The patient presented with abnormal CT revealing a left lower lobe lung nodule measuring 8 mm. There was also ill-defined infiltrate in the left upper lobe. Risks, benefits, and alternatives reviewed with the patient. She consented. SARS-CoV-2 testing was performed which was negative. DESCRIPTION OF PROCEDURE: A timeout was performed prior to sedation. Vital signs and O2 saturations were maintained within normal limits throughout the procedure. The bronchoscope was passed through the right naris. The vocal cords were identified moving bilaterally without any dysfunction. The vocal cords were then anesthetized with a total of 5 mL of 4% lidocaine. The bronchoscope was passed through the vocal cords into the proximal trachea, which was normal. The distal trachea was likewise normal. The right and left segments and subsegments were all visualized. The right segments and subsegments were visualized. There was no endobronchial lesion. Upon inspecting the left side, there was a partially visualized endobronchial lesion within the lateral subsegment of the left lower lobe. Color ceron, it was more of dark and yellow in appearance. I did not have typical appearance of a squamous carcinoma or a non-small cell carcinoma. Multiple biopsies were performed. It was very difficult to perform the biopsy as a result of the opening to the subsegment being small. I could not fully open the forceps biopsy. A couple of biopsies were obtained. There was a lavage that was performed of the same area. IMPRESSION: 1. Normal vocal cords. 2. Normal right-sided segments and subsegments. 3. Endobronchial lesion within the lateral segment of the left lower lobe, difficult to biopsy, did not have the appearance of typical carcinoma. Could be related to possibility of aspirated foreign body. PLAN: We will await bronchoalveolar lavage results and biopsy results. The patient is to follow up in the office next week on Tuesday at 4:[address] DU MD DR: TWAN/gwen JOB#: [id number] / [id number] CHADWICK Quan MD
[2020-05-15 14:20] VITALS: BP 125/69
--- NOTE | 2020-05-16 13:08 | PATHOLOGY ---
Note [facility] Accession Number: [id number] TESTS RESULT FLAG UNITS REF RANGE LAB Clinician Provided Cytology Information No. of containers..01 Other (Miscellaneous) Source: BAL LADY #1 DIAGNOSIS: BAL LADY #1 NEGATIVE FOR MALIGNANT CELLS. FOCALLY REACTIVE BRONCHIAL EPITHELIAL CELLS, FEW PULMONARY HISTIOCYTES, AND INFLAMMATORY CELLS PRESENT. Signed out by: 02 Von Mcmahon MD, Pathologist NPI- [id number] Performed by: Vikas Gomez, Rubber Goods Cutter Finisher ([facility]) Gross description: 01 5ML, PINK, 1 TP /LCS 05/15/2020 1804 Local FLAG LEGEND: L-Low Normal,H-High Normal,LL-Alert Low,HH-Alert High <-Panic Low,>-Panic High,A-Abnormal,AA-Critical Abnormal Performed at: [address] [place] [address] Timur Ballesteros MD, 02 [facility] [address] [place] [address] Von Mcmahon MD, Specimen Comment: A courtesy copy of this report has been sent to [phone] Specimen Comment: Report sent to Performed at: [address] [place] [address] [address], [place], [place] [id number] MD Timur Ballesteros MD Phone: [phone]
--- NOTE | 2020-05-16 13:08 | PATHOLOGY ---
Note [facility] Accession Number: [id number] TESTS RESULT FLAG UNITS REF RANGE LAB Clinician Provided Cytology Information No. of containers..01 Other (Miscellaneous) Source: BAL LADY #2 DIAGNOSIS: BAL LADY #2 NEGATIVE FOR MALIGNANT CELLS. FOCALLY REACTIVE BRONCHIAL EPITHELIAL CELLS, FEW PULMONARY HISTIOCYTES, INFLAMMATORY CELLS, AND RARE ATYPICAL SQUAMOUS EPITHELIAL CELLS PRESENT. Signed out by: 02 Von Mcmahon MD, Pathologist NPI- [id number] Performed by: Vikas Gomez, Pipe Finisher ([facility]) Gross description: 01 7.5ML, PINK, 1 TP /LCS 05/15/2020 1805 Local FLAG LEGEND: L-Low Normal,H-High Normal,LL-Alert Low,HH-Alert High <-Panic Low,>-Panic High,A-Abnormal,AA-Critical Abnormal Performed at: [address] [place] [address] Timur Ballesteros MD, 02 [facility] [address] [place] [address] Von Mcmahon MD, Specimen Comment: A courtesy copy of this report has been sent to [phone] Specimen Comment: Report sent to Performed at: [address] [place] [address] [address], [place], [place] [id number] MD Timur Ballesteros MD Phone: [phone]
--- NOTE | 2020-05-19 21:04 | PATHOLOGY ---
[facility] Accession Number: [id number] . 01 Material submitted: . bronchus - BRONCH BIOPSY, LEFT UPPER LOBE. Modifiers: left, upper lobe . 02 Diagnosis: Bronchial biopsy, left upper lobe: - Polypoid marked chronic bronchitis. See comment. (JPM:deja; 05/16/2020) QMS 05/16/2020 0920 Local . 02 Comment: Sections of the left upper lobe endobronchial biopsy reveal a polypoid segment of bronchial mucosa showing congestion and marked chronic inflammation. The inflammatory infiltrate consists of lymphocytes and numerous plasma cells with a few admixed eosinophils and neutrophils. There are also small fragments of calcified tissue which may represent calcified and ossified bronchial cartilage or foreign body. In situ hybridization for kappa and lambda light chain are obtained and yield the following results: . [place] and lambda GAVI (A1): Plasma cells appear polyclonal. . There is no evidence of malignancy. The case is also examined by Dr. Marx, who concurs with the diagnosis. . (JPM:deja/time lock expert; 05/16/2020) . Special stain performed: GAVI for kappa light chain and lambda light chain on A1. . 02 Electronically signed: . Von Mcmahon MD, Pathologist NPI- [id number] . 01 Gross description: . The specimen is received in formalin, labeled "Ángela Collins LUL biopsy" and consists of 2 fragments of goodson tissue measuring 0.2 x 0.1 x 0.1 cm in aggregate which are entirely submitted in A1. ([facility]; 05/15/2020) JFQ/JFQ 05/15/2020 1803 Local . 02 Pathologist provided ICD-10: J42 . 02 CPT . 284641, [id number] Specimen Comment: A courtesy copy of this report has been sent to [phone] Specimen Comment: [phone] Specimen Comment: Report sent to / DR CINTRON Performed at: [address] [facility], [place] [id number] MD Timur Ballesteros MD Phone: [phone] Performed at: 02 [facility] [address] [place], [place] [id number] MD Von Mcmahon MD Phone: [phone]
== END ==
LOC: SURG 11:50
PROVIDERS: ATTEND Internal Medicine Pulmonary Disease
DX: R91.8 Other nonspecific abnormal finding of lung field (principal); J42 Unspecified chronic bronchitis; Z79.01 Long term (current) use of anticoagulants
CPT/HCPCS: 31624; 31625; 36415; 85025; 85610; 87070; 87102; 87116; 87205; 88112; 88305; 88342; 94640; J2704; J3490; 31622; 88364; 88365; J0171; J7613

== ENCOUNTER → 2020-10-29 | Outpatient (CLI) | payer MEDICARE ==
[2020-05-15 14:20] VITALS: BP 125/69
[~2020-10-29] MED LIST changes: -ALBUTEROL SULFATE 2.5 MG/3 ML NEBU. NEB PRN; -AMIO200T4 PO; +AMIO200T6 PO; +AMLO-186 PO; -AMLO5TAB10 PO; -EPINEPHrine 1 MG/ML VIAL INJ PRN; -EPINEPHrine 1 MG/ML VIAL ONE; -HYDROmorphone 2 MG/ML VIAL IV PRN; -IV RINGERS,LACTATED 1000ML 1,000 ML IV SCH; -LIDOCAINE 1% Multi-Dose 20 ML VIAL. INJ PRN; -LIDOCAINE 1% Multi-Dose 20 ML VIAL. ONE; -LIDOCAINE 1% PF 2 ML VIAL. ID PRN; -LIDOCAINE 2% VISCOUS 100 ML BOTTLE. MM PRN; -LIDOCAINE 2% VISCOUS 100 ML BOTTLE. ONE; -LIDOCAINE 4% TOPICAL 50 ML SOLUTION. MM PRN; -LIDOCAINE 4% TOPICAL 50 ML SOLUTION. ONE; -MORPHINE SULFATE 2 MG/ML VIAL. IV PRN; -ONDANSETRON PF 4 MG/2 ML VIAL. IV PRN; -PROCHLORPERAZINE 10 MG/2 ML VIAL. IV PRN; -PROPOFOL 10 MG/ML (20ML) VIAL. IV ONE; -fentaNYL PF VIAL 100 MCG/2 ML VIAL IV PRN
--- NOTE | 2020-10-29 11:26 | RAD ---
PQRS Compliance Statement: One or more of the following individualized dose reduction techniques were utilized for this examinat ion: 1. Automated exposure control 2. Adjustment of the mA and/or kV according to patient size 3. Use of iterative reconstruction technique CT THORAX WO 10/29/2020 9:56 AM Indication: Pulmonary infiltrate COMPARISON: CT chest 04/24/2020, 04/23/2020, 01/22/2019 TECHNIQUE: Multiple axial CT images of the chest were obtained without intravenous contrast. Coronal and sagittal reformats are provided. FINDINGS: There is mild centrilobular pulmonary emphysema. There is increased nodular consolidative changes audie ntified within the superior and inferior lingula along medially. There is minimal central air cavitat ion involving a solid noncalcified pulmonary nodule within the left lower lobe superior segment measu ring 7.5 mm, previously measuring 6 mm (series 3, image 29). This finding previously measured 5 mm on 01/22/2019. No pleural effusions, pulmonary vascular congestion or pneumothorax. Thyroid gland is nor mal in appearance. Precarinal lymph node measures 8 mm. Calcified right hilar lymph nodes are identif ied. Heart size within normal limits. No pericardial effusion. There is a stent graft in the descendi ng thoracic aorta for treatment of a descending thoracic aortic aneurysm measuring 4.2 x 3.2 cm. Stab le cyst in the posterior right hepatic lobe. No new or suspicious lesions within the liver. Infrarena l abdominal aortic aneurysm measures 3.2 x 3.5 cm stable. Calcifications within the spleen likely rep resent sequela prior granulomatous exposure. No suspicious osseous abnormality is identified. IMPRESSION: 1. More confluent nodular consolidative change within the lingula as compared to prior examination. C onsideration may be given for chronic infectious/inflammatory process as may be seen with mycobacteri um avium complex. Findings are atypical for cryptogenic organizing pneumonia. 2. There is increase in size with central air cavitation involving a pulmonary nodule in the super se gment left lower lobe measuring 7.5 mm, previously 6 mm. 3 month follow-up chest CT could be of benef it to assess stability this finding remains indeterminate. 3. Centrilobular pulmonary emphysematous changes are again noted. 4. Endovascular treatment of the descending thoracic aortic aneurysm is noted. There is persistent in frarenal abdominal aortic aneurysm measuring 3.2 x 3.5 cm. Electronically signed by: Tequila Garcia MD (10/29/2020 11:23 AM) [id number]
== END ==
LOC: CT 08:52
PROVIDERS: ATTEND Internal Medicine Pulmonary Disease
DX: J43.2 Centrilobular emphysema (principal); I71.2 Thoracic aortic aneurysm, without rupture; R91.1 Solitary pulmonary nodule; I71.4 Abdominal aortic aneurysm, without rupture; K76.89 Other specified diseases of liver
CPT/HCPCS: 71250

== ENCOUNTER → 2021-01-05 | Outpatient (CLI) | payer MEDICARE ==
[2020-05-15 14:20] VITALS: BP 125/69
--- NOTE | 2021-01-05 10:34 | RAD ---
Examination: CT chest without contrast HISTORY: History of infiltrates COMPARISON: 12/30/2019 TECHNIQUE: Axial CT images of the pelvis were performed without contrast. Coronal and sagittal reform ats are performed. Exposure: One or more of the following individualized dose reduction techniques were utilized for thi s examination: 1. Automated exposure control 2. Adjustment of the mA and/or kV according to patient size 3. Use of iterative reconstruction technique FINDINGS: The visualized thyroid gland grossly appears unremarkable. Central airways are patent. Moderate bilat eral lung emphysematous changes. Nodular patchy airspace opacities identified in the left upper lobe of the lung slightly improved since prior exam. Small nodule identified in the left lobe of the lung measuring 7.5 mm similar to prior exam. Descending thoracic aortic stent graft with thoracic aortic aneurysm similar to prior exam. Cystic structure identified in the right lobe of the liver similar to prior exam likely cyst similar to prior exam. Multiple cystic structures identified in the left kidney with the largest measuring 6 cm likely a cyst similar to prior exam. Mild degenerative thoracic spine. IMPRESSION: 1. Nodular patchy airspace opacities left upper lobe of the lungs slightly improved since prior exam. 2. Unchanged 7.5 mm nodule left lower lobe of the lung. 3. Moderate bilateral lung emphysematous changes. 4. Descending thoracic aortic endograft is identified with excluded calcified thrombosed saccular ane urysm similar to prior exam. Electronically signed by: Rancho Ojeda MD (01/05/2021 10:32 AM) [id number]
== END ==
LOC: CT 08:39
PROVIDERS: ATTEND Internal Medicine Pulmonary Disease
DX: J43.8 Other emphysema (principal); R91.8 Other nonspecific abnormal finding of lung field
CPT/HCPCS: 71250

== ENCOUNTER → 2021-05-15 | Outpatient (CLI) | payer MEDICARE ==
[2020-05-15 14:20] VITALS: BP 125/69
[~2021-05-15] MED LIST changes: +CONTRAST GIVEN. MC PRN; +IOHEXOL 350 MG/ML 100 ML VIAL. IV ONE
--- NOTE | 2021-05-15 15:28 | RAD ---
PQRS Compliance Statement: One or more of the following individualized dose reduction techniques were utilized for this examinat ion: 1. Automated exposure control 2. Adjustment of the mA and/or kV according to patient size 3. Use of iterative reconstruction technique CTA CHEST_ABDOMEN_AND PELVIS, CT THORAX WO 05/15/2021 11:16 AM Indication: Lung nodule. Descending and abdominal aortic aneurysm. COMPARISON: None available. TECHNIQUE: Multiple axial CT images of the chest were obtained without intravenous contrast. Multiple axial CT angiographic images of the chest, abdomen and pelvis were obtained after intravenous admini stration of nonionic contrast. Coronal and sagittal reformats are provided. Maximum intensity project ion images are provided. FINDINGS: CHEST: There is mild centrilobular pulmonary emphysema. There is persistent subpleural nodular consolidative change within the inferior lingula which appears similar to 10/29/2020, however may be subtle increa sed from 01/05/2021 where there was mild improved aeration. There is a 5 mm subpleural solid noncalcifi ed pulmonary nodule in the left upper lobe which is stable from 10/29/2020 (series 3, image 93). Bron chial wall thickening suggestive of nonspecific bronchitis. There is a nodular opacity in the super s egment left lower lobe measuring 8 mm with central air cavitation, stable from 10/29/2020. Bronchial wall thickening compatible with nonspecific bronchitis. Calcified granuloma identified in the inferio r lingula. No pleural effusions, pulmonary vascular congestion or pneumothorax. Vascular: Heart size is within normal limits. Ascending thoracic aorta measures 2.9 cm. Aortic root measures 2. 2 cm. Sinus of Valsalva measures 2.8 cm. Sinotubular junction measures 2.1 cm. There is a stent graft extending from the proximal descending thoracic aorta to the mid to distal descending thoracic aorta . There is excluded fusiform aneurysm of the descending thoracic aorta with the [place] lumen measurin g 3.8 x 3.2 cm. There is no evidence to suggest endoleak. No opacification of the aneurysm. Descendin g thoracic aorta measures 2.1 x 2.4 cm below level of the aneurysm. Portion of the celiac axis and tejeda perior mesenteric artery appear widely patent. Inferior renal arteries are patent. There is an infrar enal abdominal aortic aneurysm measuring 3.4 x 3.2 cm with moderate calcified plaque. Common iliac ar teries, external iliac arteries and common femoral arteries are widely patent. Superficial femoral ar camille and profunda appear patent. Calcified plaque involving the left internal iliac arteries with up to mild stenosis. Calcified plaque involving the right internal iliac arteries without significant st enosis. Abdomen/pelvis: 10 mm simple cyst identified in the lateral segment left hepatic lobe. 2.1 x 2.0 cm r ight hepatic lesion demonstrates fluid attenuation compatible with simple cyst. No arterially enhanci ng hepatic lesion. Calcifications within the spleen suggest sequela prior granulomatous exposure. Gomez creas is normal in appearance, short. Gallbladder present without significant intrahepatic or extra h epatic biliary ductal dilatation. Adrenal glands are normal. Kidneys enhance symmetrically. No suspic ious renal mass. Simple exophytic cysts superior pole left kidney measures 5.3 x 4.3 cm no pathologic ally enlarged lymph nodes in abdomen and pelvis. There is no free fluid or free intraperitoneal air. Urinary bladder is within normal limits given degree distention. No suspicious pelvic mass. Mild dive rticulosis. Small and large bowel are normal in caliber. There is no evidence for bowel obstruction. There are no pericolonic inflammatory changes. A normal, nondilated appendix is visualized without ad jacent inflammatory changes. There is severe levoconvex scoliosis of the thoracolumbar spine with ape x levocurvature at L3-L4. Partial osseous fusion of L3-L4. IMPRESSION: 1. Subpleural patchy consolidative changes in the inferior lingula with more focal consolidative mcfarlane ge along the subpleural medial inferior lingula appears similar to 10/29/2020, although marginally pr ogressed since 01/05/2021 where there was previously improved aeration. Consideration may be given for chronic inflammation associated with recurrent infection. Findings are atypical for malignancy. 2. There is a solid nodule measuring 8 mm in the left lower lobe with central air cavitation which is stable from 10/29/2020. 3. Descending thoracic aortic aneurysm status post aortic stent graft treatment with complete exclusi on of the aneurysm. No findings to suggest endoleak. No aortic dissection. 4. Mild to moderate calcified atheromatous plaque involving the thoracic and abdominal aorta. 5. Incidental findings of the abdomen and pelvis as detailed above. Electronically signed by: Tqeuila Garcia MD (05/15/2021 3:25 PM) [id number]
== END ==
LOC: CT 08:14
PROVIDERS: ATTEND Surgery
DX: I71.2 Thoracic aortic aneurysm, without rupture (principal); I71.4 Abdominal aortic aneurysm, without rupture; J43.2 Centrilobular emphysema; R91.1 Solitary pulmonary nodule
CPT/HCPCS: 71275; 74174; Q9967

== ENCOUNTER → 2021-05-15 | Outpatient (CLI) | payer MEDICARE ==
[2020-05-15 14:20] VITALS: BP 125/69
[~2021-05-15] MED LIST changes: +AMIO200T53 PO; -AMIO200T6 PO; -CONTRAST GIVEN. MC PRN; -DOXY100C2 PO; +DOXY100C3 PO; -IOHEXOL 350 MG/ML 100 ML VIAL. IV ONE
[2021-05-15 09:19] LABS: CREATININE 0.6 mg/dL (0.6-1.0); GFR 98.3
--- NOTE | 2021-05-15 15:28 | RAD ---
PQRS Compliance Statement: One or more of the following individualized dose reduction techniques were utilized for this examinat ion: 1. Automated exposure control 2. Adjustment of the mA and/or kV according to patient size 3. Use of iterative reconstruction technique CTA CHEST_ABDOMEN_AND PELVIS, CT THORAX WO 05/15/2021 11:16 AM Indication: Lung nodule. Descending and abdominal aortic aneurysm. COMPARISON: None available. TECHNIQUE: Multiple axial CT images of the chest were obtained without intravenous contrast. Multiple axial CT angiographic images of the chest, abdomen and pelvis were obtained after intravenous admini stration of nonionic contrast. Coronal and sagittal reformats are provided. Maximum intensity project ion images are provided. FINDINGS: CHEST: There is mild centrilobular pulmonary emphysema. There is persistent subpleural nodular consolidative change within the inferior lingula which appears similar to 10/29/2020, however may be subtle increa sed from 01/05/2021 where there was mild improved aeration. There is a 5 mm subpleural solid noncalcifi ed pulmonary nodule in the left upper lobe which is stable from 10/29/2020 (series 3, image 93). Bron chial wall thickening suggestive of nonspecific bronchitis. There is a nodular opacity in the super s egment left lower lobe measuring 8 mm with central air cavitation, stable from 10/29/2020. Bronchial wall thickening compatible with nonspecific bronchitis. Calcified granuloma identified in the inferio r lingula. No pleural effusions, pulmonary vascular congestion or pneumothorax. Vascular: Heart size is within normal limits. Ascending thoracic aorta measures 2.9 cm. Aortic root measures 2. 2 cm. Sinus of Valsalva measures 2.8 cm. Sinotubular junction measures 2.1 cm. There is a stent graft extending from the proximal descending thoracic aorta to the mid to distal descending thoracic aorta . There is excluded fusiform aneurysm of the descending thoracic aorta with the [place] lumen measurin g 3.8 x 3.2 cm. There is no evidence to suggest endoleak. No opacification of the aneurysm. Descendin g thoracic aorta measures 2.1 x 2.4 cm below level of the aneurysm. Portion of the celiac axis and tejeda perior mesenteric artery appear widely patent. Inferior renal arteries are patent. There is an infrar enal abdominal aortic aneurysm measuring 3.4 x 3.2 cm with moderate calcified plaque. Common iliac ar teries, external iliac arteries and common femoral arteries are widely patent. Superficial femoral ar camille and profunda appear patent. Calcified plaque involving the left internal iliac arteries with up to mild stenosis. Calcified plaque involving the right internal iliac arteries without significant st enosis. Abdomen/pelvis: 10 mm simple cyst identified in the lateral segment left hepatic lobe. 2.1 x 2.0 cm r ight hepatic lesion demonstrates fluid attenuation compatible with simple cyst. No arterially enhanci ng hepatic lesion. Calcifications within the spleen suggest sequela prior granulomatous exposure. Gomez creas is normal in appearance, short. Gallbladder present without significant intrahepatic or extra h epatic biliary ductal dilatation. Adrenal glands are normal. Kidneys enhance symmetrically. No suspic ious renal mass. Simple exophytic cysts superior pole left kidney measures 5.3 x 4.3 cm no pathologic ally enlarged lymph nodes in abdomen and pelvis. There is no free fluid or free intraperitoneal air. Urinary bladder is within normal limits given degree distention. No suspicious pelvic mass. Mild dive rticulosis. Small and large bowel are normal in caliber. There is no evidence for bowel obstruction. There are no pericolonic inflammatory changes. A normal, nondilated appendix is visualized without ad jacent inflammatory changes. There is severe levoconvex scoliosis of the thoracolumbar spine with ape x levocurvature at L3-L4. Partial osseous fusion of L3-L4. IMPRESSION: 1. Subpleural patchy consolidative changes in the inferior lingula with more focal consolidative mcfarlane ge along the subpleural medial inferior lingula appears similar to 10/29/2020, although marginally pr ogressed since 01/05/2021 where there was previously improved aeration. Consideration may be given for chronic inflammation associated with recurrent infection. Findings are atypical for malignancy. 2. There is a solid nodule measuring 8 mm in the left lower lobe with central air cavitation which is stable from 10/29/2020. 3. Descending thoracic aortic aneurysm status post aortic stent graft treatment with complete exclusi on of the aneurysm. No findings to suggest endoleak. No aortic dissection. 4. Mild to moderate calcified atheromatous plaque involving the thoracic and abdominal aorta. 5. Incidental findings of the abdomen and pelvis as detailed above. Electronically signed by: Tequila Garcia MD (05/15/2021 3:25 PM) [id number]
== END ==
LOC: CT 08:14
PROVIDERS: ATTEND Internal Medicine Pulmonary Disease
DX: R91.1 Solitary pulmonary nodule (principal); J43.2 Centrilobular emphysema; I71.2 Thoracic aortic aneurysm, without rupture; I70.0 Atherosclerosis of aorta
CPT/HCPCS: 36415; 71250; 82565

== ENCOUNTER → 2022-02-16 | Outpatient (CLI) | payer MEDICARE ==
[2020-05-15 14:20] VITALS: BP 125/69
--- NOTE | 2022-02-17 07:51 | CARD ---
MR#: [id number] Date of Study: 02/16/2022 Ordering Physician: TIMOTHY CUELLAR, Referring Physician: TIMOTHY CUELLAR, Tech: Nimo Bo [facility] APPROVED REPORT EXAM: Two-dimensional and M-mode echocardiogram with Doppler and color Doppler. Other Information Quality : GoodHR: 67bpm Rhythm : NSR INDICATION COPD Dyspnea 2D DIMENSIONS RVDd3.1 (2.9-3.5cm)Left Atrium(2D)3.3 (1.6-4.0cm) IVSd0.9 (0.7-1.1cm)Aortic Root(2D)2.6 (2.0-3.7cm) LVDd3.8 (3.9-5.9cm)LVOT Diameter1.9 (1.8-2.4cm) PWd0.8 (0.7-1.1cm)LVDs2.3 (2.5-4.0cm) FS (%) 38.9 %SV43.1 ml LVEF(%)70.1 (>50%) Aortic Valve AoV Peak Chip.128.1cm/sAoV VTI31.3cm AO Peak GR.6.6mmHgLVOT Peak Chip.98.0cm/s AO Mean GR.3mmHgAVA (VMAX)2.25cm2 Mitral Valve MV E Yubpvric68.1cm/sMV DECEL [id number] MV A Tdiiyfgz19.0cm/sE/A Ratio0.9 Pulmonary Valve PV Peak Jqyjfxob206.3cm/s Tricuspid Valve TR P. Iarxrjyo617hi/sTR Peak Gr.23mmHg LEFT VENTRICLE The left ventricle is normal size. There is normal left ventricular wall thickness. The left ventricu lar systolic function is normal and the ejection fraction is within normal range. Estimated ejection fraction 60-65%. There is normal LV segmental wall motion. The left ventricular diastolic function an d filling is normal for age. RIGHT VENTRICLE The right ventricle is normal size. There is normal right ventricular wall thickness. The right ventr icular systolic function is normal. ATRIA The left atrium size is normal. The right atrium size is normal. The interatrial septum is intact wit h no evidence for an atrial septal defect or patent foramen ovale as noted on 2-D or Doppler imaging. AORTIC VALVE The aortic valve is normal in structure and function. Doppler and Color Flow revealed no significant aortic regurgitation. There is no significant aortic valvular stenosis. MITRAL VALVE The mitral valve is normal in structure and function. There is no evidence of mitral valve prolapse. There is no mitral valve stenosis. Doppler and Color-flow revealed trace to mild mitral regurgitation . TRICUSPID VALVE The tricuspid valve is normal in structure and function. Doppler and Color Flow revealed trace tricus pid regurgitation. Estimated PAP 25-27 mmHg. There is no tricuspid valve stenosis. PULMONIC VALVE Doppler and Color Flow revealed no pulmonic valvular regurgitation. There is no pulmonic valvular josué nosis. GREAT VESSELS The aortic root is normal in size. The ascending aorta is normal in size. The IVC is normal in size a nd collapses >50% with inspiration. PERICARDIAL EFFUSION There is no evidence of significant pericardial effusion. Critical Notification Critical Value: No <Conclusion> The left ventricular systolic function is normal and the ejection fraction is within normal range. E stimated ejection fraction 60-65%. There is normal LV segmental wall motion. Signed by : Timothy Cuellar, Electronically Approved : 02/17/2022 07:50:36
== END ==
LOC: ECHO 13:00
PROVIDERS: ATTEND Internal Medicine Cardiovascular Disease
DX: I34.0 Nonrheumatic mitral (valve) insufficiency (principal); I48.0 Paroxysmal atrial fibrillation
CPT/HCPCS: 93306; C8929